=== PATIENT | male | born 1990 | race Caucasian/White ===

== ENCOUNTER 2016-11-12 12:24 | Inpatient (IN) | payer BC, OTHER ==
[~2016-11-12] VITALS: Ht 175.3 cm; Wt 79.4 kg
[2016-11-12] MEDS ORDERED: diphenhydrAMINE 50 MG CAPSULE PO PRN (14:15)
[2016-11-12] MEDS ORDERED: ONDANSETRON ODT 4 MG TAB.RAPDIS SL PRN (14:15)
[2016-11-12] MEDS ORDERED: IBUPROFEN 600 MG TABLET PO PRN (14:15)
[2016-11-12] MEDS ORDERED: HYDROXYZINE PAMOATE 25 MG CAPSULE PO PRN (14:15)
[2016-11-12] MEDS ORDERED: ACETAMINOPHEN 325 MG TABLET PO PRN (14:15)
[2016-11-12] MEDS ORDERED: METHOCARBAMOL 750 MG TABLET PO PRN (14:15)
[2016-11-12] MEDS ORDERED: BUPRENORPHINE HCL 2 MG TAB.SUBL SL PRN (14:15)
[2016-11-12] MEDS ORDERED: LOPERAMIDE HCL 2 MG CAPSULE PO PRN ×2 (14:15)
[2016-11-12] MEDS ORDERED: PROMETHAZINE HCL 25 MG/1 ML VIAL IM PRN (14:15)
[2016-11-12] MEDS ORDERED: DICYCLOMINE HCL 20 MG TABLET PO PRN (14:15)
[2016-11-12] MEDS ORDERED: CLONIDINE HCL 0.1 MG TABLET PO PRN (14:15)
[2016-11-12] MEDS ORDERED: LORAZEPAM 2 MG/1 ML VIAL IM PRN (14:15)
[2016-11-12] MEDS ORDERED: MIRALAX 17 GM POWD.PACK PO PRN (14:15)
[2016-11-12] MEDS ORDERED: MAGNESIUM HYDROXIDE 30 ML LIQUID UDC PO PRN (14:15)
[2016-11-12] MEDS ORDERED: MAG HYDROX/AL HYDROX/SIMETH 30 ML LIQUID UDC PO PRN (14:15)
[2016-11-12] MEDS: GABAPENTIN 300 MG CAPSULE PO SCH ×2 (15:00→20:11)
[2016-11-12 15:02] LABS: *AMPHETAMINE, URINE POSITIVE (NEGATIVE); *BARBITURATE, URINE NEGATIVE (NEGATIVE); *CANNABINOID, URINE POSITIVE (NEGATIVE); *COCCAINE, URINE POSITIVE (NEGATIVE); *OPIATE, URINE POSITIVE (NEGATIVE); *PHENCYCLIDINE SCREEN,URINE NEGATIVE (NEGATIVE)
[2016-11-12] MEDS ORDERED: SERT100T PO (16:09)
[2016-11-12] MEDS ORDERED: LAMO25TA5 PO (16:10)
[2016-11-12] MEDS ORDERED: GABA600T2 PO (16:10)
[2016-11-12 18:48] LABS: BASOPHILS % (AUTO) 0.5 % (0.0-2.0); EOSINOPHILS # (AUTO) 0.1 K/uL (0.0-0.7); EOSINOPHILS % (AUTO) 1.3 % (0.0-7.0); HEMATOCRIT 38.4 % (40.0-50.0); LYMPHOCYTES % (AUTO) 15.4 % (20.5-51.5); MEAN CORPUSCULAR HEMOGLOBIN 30.4 uug (27.0-31.0); MEAN CORPUSCULAR HGB CONC 34 g/dL (32.0-37.0); MEAN CORPUSCULAR VOLUME 89.9 fL (82.0-92.0); MONOCYTES # (AUTO) 0.6 K/uL (0.1-1.30); MONOCYTES % (AUTO) 9.7 % (0.0-11.0); NEUTROPHILS # (AUTO) 4.5 K/uL (1.8-8.9); NEUTROPHILS % (AUTO) 73.1 % (38.5-71.5); PLATELET COUNT (AUTO) 153 K/uL (150-450); RED BLOOD CELL COUNT(AUTO) 4.27 MIL/uL (4.70-6.10); RED CELL DISTRIBUTION WIDTH 12.3 % (11.5-14.5); WHITE BLOOD COUNT (AUTO) 6.2 K/uL (4.0-11.2)
[2016-11-12 18:58] LABS: ALANINE AMINOTRANSFERASE 44 U/L (16-63); ALBUMIN 3.2 g/dL (3.4-5.0); ALKALINE PHOSPHATASE 73 U/L (50-136); ASPARTATE AMINOTRANSFERASE 35 U/L (15-37); BILIRUBIN,TOTAL 0.3 mg/dL (0.2-1.0); CALCIUM 8.3 mg/dL (8.5-10.1); CARBON DIOXIDE 31 mmol/L (21-32); CHLORIDE 104 mmol/L (98-107); CREATININE 0.9 mg/dL (0.6-1.3); GFR 102 mL/min (>60); GLUCOSE 97 mg/dL (74-106); MAGNESIUM 2.1 mg/dL (1.8-2.4); POTASSIUM 3.3 mmol/L (3.5-5.1); SODIUM SERUM 140 mmol/L (136-145); TOTAL PROTEIN, SERUM 6.6 g/dL (6.4-8.2); UREA NITROGEN, BLOOD 8 mg/dL (7-18)
[2016-11-12 19:28] LABS: HIV-1 p24 ANTIGEN NON REACTIVE (NONREACTIVE); HIV-1/2 ANTIBODY NON REACTIVE (NONREACTIVE)
[2016-11-12] MEDS ORDERED: POTASSIUM CHLORIDE 20 MEQ TAB.PRT.SR PO ONE (19:30)
[2016-11-12 19:32] LABS: THYROID STIMULATING HORMONE 0.136 mIU/mL (0.358-3.740)
[2016-11-12 20:00] VITALS: BP 109/50
[2016-11-12 20:34] LABS: ETHANOL < 3 MG/DL (0-0)
[2016-11-13 08:00] VITALS: BP 106/64
[2016-11-13] MEDS ORDERED: TUBERCULIN,PURIF.PROT.DERIV. 5 TU/0.1 ML TEST ID ONE (09:00)
[2016-11-13] MEDS: GABAPENTIN 300 MG CAPSULE PO SCH ×3 (09:30→20:51)
[2016-11-13] MEDS: MULTIVITAMINS,THERAPEUTIC TABLET PO SCH (09:30)
[2016-11-13 12:00] VITALS: BP 134/80
[2016-11-13] MEDS: BACLOFEN 20 MG TABLET PO SCH ×2 (15:00→20:50)
[2016-11-13] MEDS: CLONIDINE HCL 0.1 MG TABLET PO SCH ×2 (15:00→20:50)
[2016-11-13 16:00] VITALS: BP 110/74
[2016-11-13] MEDS ORDERED: DICY20TA28 PO (16:49)
[2016-11-13] MEDS ORDERED: Ibuprofen PO (16:49)
[2016-11-13] MEDS ORDERED: DIPH50CA37 PO (16:49)
[2016-11-13] MEDS ORDERED: Baclofen PO (16:49)
[2016-11-13] MEDS ORDERED: HYDR-3895 PO (16:49)
[2016-11-13] MEDS ORDERED: CLON0.1T14 PO (16:49)
[2016-11-13] MEDS ORDERED: Gabapentin PO (16:49)
[2016-11-13 20:00] VITALS: BP 117/63
[2016-11-14] MEDS ORDERED: SERTRALINE HCL 100 MG TABLET PO SCH (09:00)
[2016-11-14 09:04] VITALS: BP 116/63
[2016-11-14] MEDS: GABAPENTIN 300 MG CAPSULE PO SCH (09:28)
[2016-11-14] MEDS: MULTIVITAMINS,THERAPEUTIC TABLET PO SCH (09:28)
[2016-11-14 09:29] VITALS: BP 121/81
[2016-11-14] MEDS: BACLOFEN 20 MG TABLET PO SCH (09:29)
[2016-11-14] MEDS: CLONIDINE HCL 0.1 MG TABLET PO SCH (09:29)
[2016-11-14 09:47] LABS: *AMPHETAMINE, URINE NEGATIVE (NEGATIVE); *BARBITURATE, URINE NEGATIVE (NEGATIVE); *CANNABINOID, URINE POSITIVE (NEGATIVE); *COCCAINE, URINE POSITIVE (NEGATIVE); *OPIATE, URINE POSITIVE (NEGATIVE); *PHENCYCLIDINE SCREEN,URINE NEGATIVE (NEGATIVE)
[2016-11-14 11:39] LABS: HCV AB 0.1 s/co ratio (0.0-0.9); HEPATITIS B CORE AB, IgM Negative (Negative); HEPATITIS B SURFACE AG Negative (Negative)
== END 2016-11-14 10:03 | disposition other institution (70) | DRG 895 ==
LOC: SRC 13:42
PROVIDERS: ADMIT Internal Medicine; ATTEND Internal Medicine
PROC: HZ2ZZZZ Detoxification Services for Substance Abuse Treatment (ICD-10-PCS; principal; 2016-11-12)
PROC: HZ31ZZZ Individual Counseling for Substance Abuse Treatment, Behavioral (ICD-10-PCS; 2016-11-13)
DX: F11.23 Opioid dependence with withdrawal (principal); Z81.8 Family history of other mental and behavioral disorders; Z81.1 Family history of alcohol abuse and dependence; F17.210 Nicotine dependence, cigarettes, uncomplicated; Z59.1 Inadequate housing; F41.9 Anxiety disorder, unspecified; F14.10 Cocaine abuse, uncomplicated; E87.6 Hypokalemia; D64.9 Anemia, unspecified; F32.9 Major depressive disorder, single episode, unspecified; E07.81 Sick-euthyroid syndrome; E05.90 Thyrotoxicosis, unspecified without thyrotoxic crisis or storm; F13.10 Sedative, hypnotic or anxiolytic abuse, uncomplicated; F15.10 Other stimulant abuse, uncomplicated; F12.90 Cannabis use, unspecified, uncomplicated
CPT/HCPCS: 36415; 71010; 80307; 80324; 80346; 80349; 80353; 80361; 83735; 84443; 85025; 86580; 86592; 86705; 86803; 87340; 87806; A4663; G6040-TC; Q0163

== ENCOUNTER 2016-12-02 09:25 | Inpatient (IN) | payer BC, OTHER ==
[~2016-12-02] VITALS: Ht 175.3 cm; Wt 76.7 kg
[~2016-12-02 09:25] MED LIST: Baclofen PO; CLON0.1T14 PO; DICY20TA28 PO; DIPH50CA37 PO; Gabapentin PO; HYDR-3895 PO; Ibuprofen PO; SERT100T PO
[2016-12-03] MEDS ORDERED: METHOCARBAMOL 750 MG TABLET PO PRN (23:00)
[2016-12-03] MEDS ORDERED: HYDROXYZINE PAMOATE 25 MG CAPSULE PO PRN (23:00)
[2016-12-03] MEDS ORDERED: ONDANSETRON 4 MG/2 ML VIAL IM PRN (23:00)
[2016-12-03] MEDS ORDERED: DICYCLOMINE HCL 20 MG TABLET PO PRN (23:00)
[2016-12-03] MEDS ORDERED: ACETAMINOPHEN 325 MG TABLET PO PRN (23:00)
[2016-12-03] MEDS ORDERED: MIRALAX 17 GM POWD.PACK PO PRN (23:00)
[2016-12-03] MEDS ORDERED: ONDANSETRON ODT 4 MG TAB.RAPDIS SL PRN (23:00)
[2016-12-03] MEDS ORDERED: IBUPROFEN 600 MG TABLET PO PRN (23:00)
[2016-12-03] MEDS ORDERED: CLONIDINE HCL 0.1 MG TABLET PO PRN (23:00)
[2016-12-03] MEDS ORDERED: MAGNESIUM HYDROXIDE 30 ML LIQUID UDC PO PRN (23:00)
[2016-12-03] MEDS ORDERED: BUPRENORPHINE HCL 2 MG TAB.SUBL SL PRN (23:00)
[2016-12-03] MEDS ORDERED: MAG HYDROX/AL HYDROX/SIMETH 30 ML LIQUID UDC PO PRN (23:00)
[2016-12-03] MEDS ORDERED: diphenhydrAMINE 50 MG CAPSULE PO PRN (23:00)
[2016-12-03] MEDS ORDERED: LOPERAMIDE HCL 2 MG CAPSULE PO PRN ×2 (23:00)
--- NOTE | 2016-12-03 23:27 | NUR ---
ADMISSION NOTE: 26 year old, well-nourished, caucasion male admitted ambulatory from [facility] intake to room # 329B, after being given brief tour of [facility] floor. Gait is steady, though slightly slow, measured. Patient is oriented to person, place, day and his personal situation. Reoriented to date and time. Patient is awake and fairly alert, however he is hyperverbal in a very slow, meandering manner and he will ramble when asked the simplest, most direct questions. Patient appears to be under the influence, though he can meet and maintain good eye contact. Patient's color is pink and his skin is warm, dry and intact. Lung sounds are clear bilaterally and active bowel sounds are noted x 4 abdominal Quads, per auscultation. Patient moves all his extremities fully WNL. Patient denies any allergies and states that he doesn't remember any seizure history. Patient states that he did have a PCP but has recently switched to a new health insurance and now he will be receiving a new PCP from that company. Patient is 5 feet and 9 inches and he weighs 169 lbs. Patient states that he has a hx of Depression, pancreatitis and repair of fractured right humerous bone. Vital signs are: 97.8-95-18 130/83, O2 Sat 98%, COWS 5. Patient states that he has been here at [facility] "a little over 30 days ago". [facility], got kicked out from there and now he is admitted again. Patient is admitted for 1) heroin IV use, daily, 1/2 gram, last use was 12/03/16, 1/2 gram. Total time using heroin is 10 years, on/off. 2) Crack cocaine, smoked, 1 quarter, a few times per week, last crack cocaine use was 12/02/16, 1 quarter. Total time using Crack cocaine is 10 years, on/off. 3) Methamphetamine IV, 2 quarters, a few times per week, last meth use was 12/03/16, 1 quarter IV. Total time meth use is 3 years, on/off. Patient states that his longest sobriety period was 13 months, both in 2007 and 2014. Patient is denying any pain or other discomfort and he was oriented to his room and nurse call light. Patient has been to several treatment facilities, since 2006, though he is not exactly sure of all the names or exact dates. Patient was in a [place] facility for 4 months in 2006, in [place], [place] for 24 days in 2012, in 3 different facilities in 2013 [facility] and in a sober living home in [facility], earlier this year. Patient is cooperative and friendly. Bed is locked and in lowest position, bed rails are up X 2 and call light within patient easy reach. Patient is oriented to nurse call light and his room. Patient had fluids and cereal snack.
[2016-12-03 23:51] LABS: ETHANOL < 3 MG/DL (0-0)
[2016-12-03 23:53] LABS: *AMPHETAMINE, URINE POSITIVE (NEGATIVE); *BARBITURATE, URINE NEGATIVE (NEGATIVE); *CANNABINOID, URINE POSITIVE (NEGATIVE); *COCCAINE, URINE POSITIVE (NEGATIVE); *OPIATE, URINE POSITIVE (NEGATIVE); *PHENCYCLIDINE SCREEN,URINE NEGATIVE (NEGATIVE)
[2016-12-03 23:57] LABS: ALANINE AMINOTRANSFERASE 30 U/L (16-63); ALBUMIN 4.2 g/dL (3.4-5.0); ALKALINE PHOSPHATASE 103 U/L (50-136); ASPARTATE AMINOTRANSFERASE 32 U/L (15-37); BILIRUBIN,TOTAL 0.5 mg/dL (0.2-1.0); CALCIUM 9.1 mg/dL (8.5-10.1); CARBON DIOXIDE 32 mmol/L (21-32); CHLORIDE 101 mmol/L (98-107); CREATININE 1.2 mg/dL (0.6-1.3); GFR 73 mL/min (>60); GLUCOSE 114 mg/dL (74-106); MAGNESIUM 2.1 mg/dL (1.8-2.4); POTASSIUM 3.6 mmol/L (3.5-5.1); SODIUM SERUM 140 mmol/L (136-145); TOTAL PROTEIN, SERUM 8.6 g/dL (6.4-8.2); UREA NITROGEN, BLOOD 6 mg/dL (7-18)
[2016-12-04] VITALS: BP 130/83
[2016-12-04] LABS: BASOPHILS # (AUTO) 0.1 K/uL (0.0-0.2); BASOPHILS % (AUTO) 0.8 % (0.0-2.0); EOSINOPHILS # (AUTO) 0.4 K/uL (0.0-0.7); EOSINOPHILS % (AUTO) 5.2 % (0.0-7.0); HEMOGLOBIN 15.6 g/dL (14.0-18.0); LYMPHOCYTES # (AUTO) 2.3 K/uL (0.8-4.8); LYMPHOCYTES % (AUTO) 27.8 % (20.5-51.5); MEAN CORPUSCULAR HEMOGLOBIN 31.9 uug (27.0-31.0); MEAN CORPUSCULAR HGB CONC 35 g/dL (32.0-37.0); MEAN CORPUSCULAR VOLUME 90.3 fL (82.0-92.0); MONOCYTES # (AUTO) 0.6 K/uL (0.1-1.30); MONOCYTES % (AUTO) 7.3 % (0.0-11.0); NEUTROPHILS % (AUTO) 58.9 % (38.5-71.5); PLATELET COUNT (AUTO) 233 K/uL (150-450); RED BLOOD CELL COUNT(AUTO) 4.87 MIL/uL (4.70-6.10); RED CELL DISTRIBUTION WIDTH 12.7 % (11.5-14.5); WHITE BLOOD COUNT (AUTO) 8.4 K/uL (4.0-11.2)
[2016-12-04 00:07] LABS: THYROID STIMULATING HORMONE 3.125 mIU/mL (0.358-3.740)
[2016-12-04 00:09] LABS: HIV-1 p24 ANTIGEN NON REACTIVE (NONREACTIVE); HIV-1/2 ANTIBODY NON REACTIVE (NONREACTIVE)
[2016-12-04] MEDS ORDERED: MAG HYDROX/AL HYDROX/SIMETH 30 ML LIQUID UDC ONE (03:50)
[2016-12-04 04:00] VITALS: BP 122/79
--- NOTE | 2016-12-04 06:30 | NUR ---
0630 Patient slept a total of 2.5 hours and he had 1 void and no stools. Total intake was 710 ml p.o. V/SS afebrile, COWS 5. Prn Maalox 30 ml p.o. given for c/o heartburn at 0301 and patient stated that he felt relief from feelings of the heartburn after 30 minutes. Patient is presently sleeping soundly with eyes closed and respirations even, unlabored at 14.
[2016-12-04 08:00] VITALS: BP 131/66
--- NOTE | 2016-12-04 08:04 | NUR ---
START OF SHIFT: RECEIVED PT A/O X 4. HE PRESENTS WITH BLUNTED AFFECT AND DEPRESSED MOOD. HE REPORTS THAT HE ONLY SLEPT A FEW HOURS. HE STATES HE WAS INTOXICATED WHEN HE CAME HERE LAST NIGHT AND REPORTS THAT HE IS NOT FEELING "SICK" YET. HE STATES HE HAS ONLY BEEN USING 2 WEEKS BUT HAD TOLD THE ADMITTING NURSE HE WAS USING FOR ONE MONTH. VS WNL. WILL CONTINUE TO [id number] AND PROVIDE SAFE AND SUPPORTIVE ENVIRONMENT.
[2016-12-04] MEDS: GABAPENTIN 300 MG CAPSULE PO SCH ×3 (08:53→21:29)
[2016-12-04] MEDS: MULTIVITAMINS,THERAPEUTIC TABLET PO SCH (08:53)
[2016-12-04] MEDS ORDERED: TUBERCULIN,PURIF.PROT.DERIV. 5 TU/0.1 ML TEST ID ONE (09:00)
--- NOTE | 2016-12-04 09:15 | NUR ---
TB TEST DISCONTINUED CXR DONE IN OCTOBER. CXR PRINTED AND PLACED IN CHART.
[2016-12-04 12:00] VITALS: BP 131/66
--- NOTE | 2016-12-04 15:55 | NUR ---
HELD 1500 GABAPENTIN PT IS ASLEEP. BED LOCKED IN LOWEST POSITION CALL KIMBALL IN REACH.
[2016-12-04 16:00] VITALS: BP 113/68
--- NOTE | 2016-12-04 16:00 | NUR ---
COWS DEFERRED PT IS SLEEPING.
--- NOTE | 2016-12-04 19:17 | NUR ---
END OF SHIFT: PT CONTINUES ON PRNS FOR HEROIN,CRACK AND METH DEPENDENCE. HE STATES HE IS NOT SICK YET AND SLEPT MOST OF SHIFT. 1500 MEDS HELD AND 1600 COWS DEFERRED DUE TO SEDATION. ENCOURAGED PT TO INFORM NURSING OF S/S OF W/D SO WE CAN MANAGE S/S OF W/D. WILL PASS SHIFT REPORT TO ONCOMING NIGHT NURSE.
[2016-12-04 20:00] VITALS: BP 101/54
--- NOTE | 2016-12-04 20:00 | NUR ---
START OF SHIFT NOTE Received report from day shift nurse. Pt is 26 y o male, admitted for heroin (1/2 g on and off), crack cocaine (1/4 g on and off), methamphetamine (1/2 g on and off few times a week). Pt has prn Subutex available for withdrawal s/s management based on COWS scores. Pt in bed, asleep. Awakened by verbal stimuli, reports feeling tired and sleepy, chills, minimal anxiety upon awakening. Skin intact, warm, moist, barely sweaty. No tremors noted, pt denies tingling. Lung sounds clear, heart rate regular. Bowel sounds present x 4, pt denies n/v,. Pt denies urinary difficulties. PMH of depression and right arm fracture. Pt NKA, on regular diet, full code. Pt is on fall precautions. Side rails up x 2, call light within reach, bed locked in lowest position. Will continue with plan of care.
[2016-12-05] VITALS: BP 104/58
[2016-12-05 04:00] VITALS: BP 114/70
--- NOTE | 2016-12-05 06:15 | NUR ---
PRN VISTARIL AND ROBAXIN pt awakened, co increasing anxiety and body aches 12/08. HR 85, BP 112/ 64. COWS score 6. Administered Vistaril 50 mg PO prn and Robaxin 750 mg PO prn as ordered. Safety precautions in place, will continue to monitor
--- NOTE | 2016-12-05 07:20 | NUR ---
Start of Shift Report from night nurse: pt is 26 y/o male here for Opiate r/t Heroin 0.5g/d IV, Methamphetamine 2 quarters few times/wk IV, and Cocaine/Crack smoked 1 quarter few times per week.; No taper or PRN started and Dr. Carlos notified. Pt is a full code. regular diet. NKA, fall precautions ordered. HHx: Depression and right thigh fx with repair and multiple relapses with pt here at [facility] last month. Skin is intact. V/S stable. PRN Vistaril, Robaxin given last night with Motrin given this morning at 0600am. Night nurse endorsed for the motrin reassessment. Last COWS 6. Will reassess pt and monitor pt.
--- NOTE | 2016-12-05 07:39 | NUR ---
END OF SHIFT NOTE Pt is 26 y o male, admitted for heroin (1/2 g on and off), crack cocaine (1/4 g on and off), methamphetamine (1/2 g on and off few times a week). Pt doesnt have taper at this time. Pt slept for 10 hrs, awakened at 060, reported anxiety, sweats, chills., body aches 5/10. Pt was given prn Vistaril and Robaxin at 0630, day nurse to reassess. VSS. Last COWS 6 at 0630. Pt is on fall precautions. Report endorsed to day shift nurse.
[2016-12-05 08:00] VITALS: BP 116/60
[2016-12-05] MEDS: MULTIVITAMINS,THERAPEUTIC TABLET PO SCH (11:19)
[2016-12-05] MEDS: GABAPENTIN 300 MG CAPSULE PO SCH ×3 (11:19→21:48)
[2016-12-05 12:00] VITALS: BP 107/69
[2016-12-05 12:08] LABS: HCV AB <0.1 s/co ratio (0.0-0.9); HEPATITIS B CORE AB, IgM Negative (Negative); HEPATITIS B SURFACE AG Negative (Negative)
[2016-12-05] MEDS: BUPRENORPHINE HCL 2 MG TAB.SUBL SL SCH ×2 (13:35→21:49)
[2016-12-05 16:00] VITALS: BP 116/66
[2016-12-05] MEDS: BACLOFEN 20 MG TABLET PO SCH ×2 (16:08→21:48)
[2016-12-05] MEDS: DICYCLOMINE HCL 20 MG TABLET PO SCH ×2 (16:08→21:48)
[2016-12-05] MEDS: CLONIDINE HCL 0.1 MG TABLET PO SCH ×2 (16:15→21:00)
[2016-12-05] MEDS: LAMOTRIGINE 25 MG TABLET PO SCH (16:15)
[2016-12-05] MEDS: SERTRALINE HCL 100 MG TABLET PO SCH (16:15)
--- NOTE | 2016-12-05 17:30 | NUR ---
New Orders-MRSA New Orders for MRSA Swab per Dr. Carlos.
--- NOTE | 2016-12-05 19:38 | NUR ---
End of the Shift Report to night nurse with update: pt is 26 y/o male here for Opiate r/t Heroin 0.5g/d IV, Methamphetamine 2 quarters few times/wk IV, and Cocaine/Crack smoked 1 quarter few times per week.; No taper or PRN started and Dr. Carlos notified. Pt is a full code. regular diet. NKA, fall precautions ordered. HHx: Depression and right thigh fx with repair and multiple relapses with pt here at [facility] last month. Skin is intact. V/S stable. No PRN Medications ordered. New Order for Modified Subutex taper starting today at 1500H and MRSA swab done per Dr. Carlos r/t Inadequate housing/unstable permanent housing. Pt stayed in room withdrawn and isolated to self and did not attend group therapy or activities; new orders for anti-depressants from Dr. Bassett. No PRN medications given during my shift. Last COWS 4 at 1500-1600H.
[2016-12-05 20:00] VITALS: BP 109/60
--- NOTE | 2016-12-05 20:00 | NUR ---
START OF SHIFT Received report from day shift nurse. Pt attended a group meeting and returned to his room after. He is a 26 yo male admitted to [facility] on 12/03 for heroin dependence with a h/o using crack cocaine and methamphetamine. He has NKA, is full code status, and on a regular diet. He has a PMH of right humerus bone fracture and depression. On admission he admitted to using heroin IV 0.5 grams per day on and off since age 16, crack cocaine 0.25 gram a few times per week, and methamphetamine 0.5 grams IV a few times per week. Pt relapsed after leaving [facility] last month. He started a modified subutex taper today. Pt reports anxiety, body aches, nasal stuffiness, and has moist skin. Subutex taper due tonight. Fall precautions in place. Bed is down with call light in reach.
[2016-12-06] VITALS: BP 104/60
--- NOTE | 2016-12-06 04:00 | NUR ---
0400 Vitals deferred Pt refused to be woken for 0400 vitals. Respirations even and unlabored. Bed is down with call light in reach.
--- NOTE | 2016-12-06 07:25 | NUR ---
END OF SHIFT Report provided to day shift nurse. Pt is lying in bed resting. He is a 26 yo male admitted to [facility] on 12/03 for heroin dependence with a h/o using crack cocaine and methamphetamine. He has NKA, is full code status, and on a regular diet. He has a PMH of right humerus bone fracture and depression. On admission he admitted to using heroin IV 0.5 grams per day on and off since age 16, crack cocaine 0.25 gram a few times per week, and methamphetamine 0.5 grams IV a few times per week. Pt relapsed after leaving [facility] last month. He started a modified subutex taper on 12/05. Pt experienced flushing, chills, and moist skin. No PRN medications administered. Last COWS was 4 before bed. He drank 595mL and slept for 8 hours. Fall precautions in place. Bed is down with call light in reach.
--- NOTE | 2016-12-06 07:36 | NUR ---
START OF SHIFT Received report from night time nanny nurse. 26 year old male patient admitted on 12/03/16 for Heroin/methamphetamine/crack-cocaine dependence. Pt reports relapsing x1 month. Pt is on a modified Subutex taper. Pt has hx of depression, and fracture and repair of right humerus bone. No PRN medications were needed or administered at night. V/S remain WNL. Clonidine 0.1 mg was held, is aware. Pt slept for 8 hours. Most recent COWS at 0400 is 2100. All needs met, safety precautions are in place, will continue to monitor.
[2016-12-06 08:18] VITALS: BP 104/63
[2016-12-06] MEDS ORDERED: BUPRENORPHINE HCL 2 MG TAB.SUBL SL SCH (09:00)
[2016-12-06] MEDS: BACLOFEN 20 MG TABLET PO SCH ×3 (09:30→21:33)
[2016-12-06] MEDS: GABAPENTIN 300 MG CAPSULE PO SCH ×3 (09:30→21:34)
[2016-12-06] MEDS: DICYCLOMINE HCL 20 MG TABLET PO SCH ×3 (09:30→21:00)
[2016-12-06] MEDS: SERTRALINE HCL 100 MG TABLET PO SCH (09:30)
[2016-12-06] MEDS: MULTIVITAMINS,THERAPEUTIC TABLET PO SCH (09:30)
[2016-12-06] MEDS: CLONIDINE HCL 0.1 MG TABLET PO SCH ×3 (09:30→21:33)
[2016-12-06] MEDS: LAMOTRIGINE 25 MG TABLET PO SCH (09:59)
[2016-12-06 13:16] VITALS: BP 117/70
[2016-12-06 15:37] LABS: *AMPHETAMINE, URINE POSITIVE (NEGATIVE); *BARBITURATE, URINE NEGATIVE (NEGATIVE); *CANNABINOID, URINE POSITIVE (NEGATIVE); *COCCAINE, URINE POSITIVE (NEGATIVE); *OPIATE, URINE POSITIVE (NEGATIVE); *PHENCYCLIDINE SCREEN,URINE NEGATIVE (NEGATIVE)
[2016-12-06 17:18] VITALS: BP 101/66
--- NOTE | 2016-12-06 19:24 | NUR ---
END OF SHIFT Endorsed to casino shift manager nurse. 26 year old male patient admitted on 12/03/16 for Heroin/methamphetamine/crack-cocaine dependence. Pt reports relapsing x1 month. Pt has completed taper and is medically cleared for d/c. Pt has hx of depression, and fracture and repair of right humerus bone. No PRN medications were needed or administered during day. Most recent COWS 3. V/S remain WNL. All needs met, safety precautions are in place, casino shift manager to continue to monitor.
--- NOTE | 2016-12-06 19:50 | NUR ---
START OF SHIFT Received report from day shift nurse. Pt is lying in bed watching TV. He is a 26 yo male admitted to [facility] on 12/03 for heroin dependence with a h/o using crack cocaine and methamphetamine. He has NKA, is full code status, and on a regular diet. He has a PMH of right humerus bone fracture and depression. On admission he reported using heroin IV 0.5 grams per day on and off since age 16, crack cocaine 0.25 gram a few times per week, and methamphetamine 0.5 grams IV a few times per week. He completed a modified subutex taper today and is scheduled for discharge tomorrow. Pt reports body aches and anxiety. Minimal other s/s of withdrawal noted. Fall precautions in place. Bed is down with call light in reach.
[2016-12-06 20:00] VITALS: BP 107/59
[2016-12-06 22:00] VITALS: BP 128/76
--- NOTE | 2016-12-07 | NUR ---
0000 Vitals deferred Pt refused to be woken for 0000 Vitals. Respirations even and unlabored. Bed is down with call light in reach.
--- NOTE | 2016-12-07 04:00 | NUR ---
0400 Vitals deferred Pt refused to be woken for 0400 Vitals. Respirations even and unlabored. Bed is down with call light in reach.
--- NOTE | 2016-12-07 07:25 | NUR ---
START OF SHIFT Report provided to day shift nurse. Pt is lying in bed resting. He is a 26 yo male admitted to [facility] on 12/03 for heroin dependence with a h/o using crack cocaine and methamphetamine. He has NKA, is full code status, and on a regular diet. He has a PMH of right humerus bone fracture and depression. On admission he reported using heroin IV 0.5 grams per day on and off since age 16, crack cocaine 0.25 gram a few times per week, and methamphetamine 0.5 grams IV a few times per week. Pt relapsed after leaving [facility] last month. Pt completed a modified subutex taper and is scheduled for discharge today. No PRN medications administered. Last COWS was 3. He drank 820mL and slept for 8 hours. Fall precautions in place. Bed is down with call light in reach. Addendum: 12/07/16 at 0741 by NERY MOORE RN END OF SHIFT
--- NOTE | 2016-12-07 07:26 | NUR ---
Start of shift note Pt was admitted for Opiate dependence. Pt has a PMH of depression. Pt has completed a modified subutex taper without any ASE. Pt is a full code, regular diet and has NKA. Pt is currently resting in his room. Bed is locked in a low position, call light within reach, side rails up x 2. Will continue to monitor pt. All needs addressed at this time.
[2016-12-07 08:00] VITALS: BP 110/69
[2016-12-07 09:12] VITALS: BP 110/69
[2016-12-07] MEDS: GABAPENTIN 300 MG CAPSULE PO SCH (09:12)
[2016-12-07] MEDS: CLONIDINE HCL 0.1 MG TABLET PO SCH (09:12)
[2016-12-07] MEDS: MULTIVITAMINS,THERAPEUTIC TABLET PO SCH (09:12)
[2016-12-07] MEDS: DICYCLOMINE HCL 20 MG TABLET PO SCH (09:12)
[2016-12-07] MEDS: BACLOFEN 20 MG TABLET PO SCH (09:12)
[2016-12-07] MEDS: LAMOTRIGINE 25 MG TABLET PO SCH (09:12)
[2016-12-07] MEDS: SERTRALINE HCL 100 MG TABLET PO SCH (09:12)
[2016-12-07] MEDS ORDERED: Baclofen PO (09:26)
[2016-12-07] MEDS ORDERED: LAMO25TA5 PO (09:26)
[2016-12-07] MEDS ORDERED: CLON0.1T14 PO (09:26)
[2016-12-07] MEDS ORDERED: DICY20TA28 PO (09:26)
[2016-12-07] MEDS ORDERED: Ibuprofen PO (09:26)
[2016-12-07] MEDS ORDERED: HYDR-3895 PO (09:26)
--- NOTE | 2016-12-07 10:04 | NUR ---
Discharge note Pt was admitted for opiate dependence. Pt has a COWS of 0. Pt VS are WNL. Pt LBM was 12/07/16. Pt denies any SI/HI. Pt states that he feels ready for discharge. Pt verbalized his understanding of the discharge instructions. Pt discharge instructions, prescriptions, medications and all belongings returned to pt. Pt ID band removed. Pt ambulated off of unit with RATE CLERK, left facility via [facility].
== END 2016-12-07 10:04 | disposition other institution (70) | DRG 895 ==
LOC: SRC 12-03 21:57
PROVIDERS: ADMIT Internal Medicine; ATTEND Internal Medicine
PROC: HZ2ZZZZ Detoxification Services for Substance Abuse Treatment (ICD-10-PCS; principal; 2016-12-03)
PROC: HZ41ZZZ Group Counseling for Substance Abuse Treatment, Behavioral (ICD-10-PCS; 2016-12-06)
DX: F11.23 Opioid dependence with withdrawal (principal); Z81.1 Family history of alcohol abuse and dependence; Z81.8 Family history of other mental and behavioral disorders; F17.210 Nicotine dependence, cigarettes, uncomplicated; Z59.0 Homelessness; Z59.1 Inadequate housing; F14.10 Cocaine abuse, uncomplicated; F12.90 Cannabis use, unspecified, uncomplicated; F15.10 Other stimulant abuse, uncomplicated; F31.9 Bipolar disorder, unspecified; R73.9 Hyperglycemia, unspecified; F41.9 Anxiety disorder, unspecified
CPT/HCPCS: 36415; 70030-TC; 80307; 80324; 80349; 80353; 80361; 83735; 84443; 85025; 86592; 86705; 86803; 87340; 87806; G6040-TC